=== PATIENT | male | born 1980 | race Caucasian/White ===

== ENCOUNTER 2021-05-05 12:06 | Emergency (ER) | payer MEDICAID, SELFPAY ==
[2021-05-05 12:08] VITALS: BP 124/73; PULSE 69; RESP 18; TEMP 36; O2SAT 97; BMI 26.4
--- NOTE | 2021-05-05 14:16 | EX.ED.GUMALE ---
HPI History of Present Illness Chief Complaint: Male Pain/Injury Informant: patient Pain Onset: Weeks Context: Gradual Onset Current Severity: Mild Maximum Severity: Moderate Narrative Narrative: Patient presents secondary to concern for right inguinal hernia. Patient notes pain in his right groin after being sick a few weeks ago and coughing a lot. When he stands he now notices the bulge. No difficulty with urination or bowel movements. No fever or chills. PFSH PFSH Medical History Smoker no medical history Home Medications NK 05/05/21 [History Last Taken Unknown] Allergy/AdvReac Type Severity Reaction Status Date / Time No Known Allergies Allergy Verified 05/05/21 12:07 Social History Smoking Status: Current every day smoker tobacco type: cigarettes ROS ROS ED Constitutional Constitutional ED: Denies chills or fever(s) Eyes Eyes: Denies change in vision ENT ENT ED: Denies sore throat Cardiovascular Cardiovascular: Denies chest pain Respiratory/Chest Respiratory/Chest: Denies cough or dyspnea Gastrointestinal Gastrointestinal: Reports abdominal pain; Denies diarrhea, nausea or vomiting Genitourinary Genitourinary ED: Denies dysuria Musculoskeletal Musculoskeletal: Denies back pain Integumentary Denies rash Neurologic Neurologic: Denies headache(s) or weakness Allergic/Immunologic Allergic/Immunologic ED: Denies urticaria EXAM Physical Exam Const Vital Signs: 05/05/21 12:08 Temperature 96.8 F L Temperature Source Temporal Pulse Rate 69 Respiratory Rate 18 Blood Pressure 124/73 H Blood Pressure Mean 90 Pulse Ox 97 Oxygen Delivery Method Room Air Positive well nourished and well developed General Appearance ED: well developed HEENT normocephalic and atraumatic Eyes PERRL and EOMs intact bilaterally Neck supple Resp normal respiratory effort and clear to auscultation bilaterally Cardio regular rate and regular rhythm GI GI Narrative: Reducible direct inguinal hernia noted on the right. Hypoactive bowel sounds noted. Palpation: soft Neuro oriented x3 Sensorium / Orientation: alert Psych mental status grossly normal Skin Rashes: no rashes [facility] Treatment and Re-Evaluation Comments:: Discussed with patient he does have a inguinal hernia that is reducible at this time. Instructions for what to do if it is allergy stuck. Referral to surgery for elective repair. Return instructions provided. Discharge Plan Triage Chief Complaint: Male Pain/Injury ED Provider: Radha Almodovar Dx/Rx/DC Orders Clinical Impression: Inguinal hernia Instructions: ED Hernia (Adult) Prescriptions: No Action NK RF: 0 Primary Care Provider: Care Physician,No Primary Referrals: Joy Sheppard MD [STAFF PHYSICIAN] - As soon as possible Care Physician,No Primary [Primary Care Provider] - Disposition Disposition: Home, Self Care
[2021-05-05 14:50] VITALS: BP 114/87; PULSE 85; RESP 16; O2SAT 98
== END 2021-05-05 14:51 | disposition home or self-care (01) ==
LOC: ED 14:28
PROVIDERS: Emergency Provider Emergency Medicine; Visit Provider Emergency Medicine
DX: K40.90 Unilateral inguinal hernia, without obstruction or gangrene, not specified as recurrent (principal); F17.210 Nicotine dependence, cigarettes, uncomplicated
CPT/HCPCS: 99282

== ENCOUNTER 2023-10-13 20:18 | Emergency (ER) | payer SELFPAY ==
[2023-10-13 20:19] VITALS: BP 126/111; PULSE 97; RESP 18; TEMP 36.6; O2SAT 97; BMI 25.0
--- NOTE | 2023-10-13 20:35 | RAD_ITS ---
EXAM: XR RIGHT KNEE COMPLETE, 4 OR MORE VIEWS CLINICAL INDICATION: knee pain TECHNIQUE: Four or more views of the right knee. COMPARISON: 05.19.23 FINDINGS: BONES/JOINTS: Unremarkable. No acute fracture. No subluxation. Normal alignment. Preservation of the joint space. No sclerotic or destructive changes observed. SOFT TISSUES: Unremarkable. No soft tissue swelling or gas. No radiopaque foreign body. RAD/Knee 4 or More Views IMPRESSION: Negative right knee x-rays. Electronically Signed: Brenton Edwards MD at 20:50 EDT ,
--- NOTE | 2023-10-13 20:46 | EDS_ITS ---
HPI <JOSESITO Palacios - Last Filed: 10/13/23 20:53> History of Present Illness Chief Complaint: Lower Extremity Injury Narrative Narrative: Patient is a 43-year-old male with no significant medical history, patient presents to the emergency department with pain to the right knee. Patient states around noon today, he was chasing his dog, he twisted wrong and heard a pop in his right knee. He states has been having difficulty walking, it is more swollen he is here for evaluation. Denies any other injury. Denies any past history of knee problems. PFSH <JOSESITO Palacios - Last Filed: 10/13/23 20:53> [facility] Medical History Smoker Home Medications ?Medication ?Instructions ?Recorded ?Last Taken ?Type NK 05/05/21 Unknown History Allergy/AdvReac Type Severity Reaction Status Date / Time No Known Allergies Allergy Verified 10/13/23 20:20 Social History Smoking Status: Current every day smoker tobacco type: cigarettes ROS <JOSESITO Palacios - Last Filed: 10/13/23 20:53> ROS ED ROS Narrative Constitutional: Negative for fever, chills, weight loss, weakness Eyes: Negative for vision loss, vision change, double vision ENT: Negative for any sore throat, ear pain, congestion Cardiovascular: Negative for any chest pain, tightness, palpitations Respiratory: Negative for any cough, sputum production, hemoptysis, dyspnea, dyspnea on exertion, orthopnea Gastrointestinal: Negative for any abdominal pain, nausea, vomiting, diarrhea, constipation, blood in stool, blood in vomit : Negative for any urinary frequency, dysuria, retention, blood in urine Muscle skeletal: Negative for any neck pain, back pain. Positive for right knee pain Neurological: Negative for any headache, syncope, dizziness Skin: Negative for any rashes, itching, abrasions, lacerations Psychiatric: Negative for any depression, anxiety, stress, suicidal ideation, homicidal ideation Hematologic: Negative for any excessive bruising, easy bleeding EXAM <JOSESITO Palacios - Last Filed: 10/13/23 20:53> Physical Exam Narrative Exam Narrative: Vital signs reviewed. HEET: Head normocephalic atraumatic, TMs clear bilaterally. Posterior pharynx is clear, moist mucous membranes. Nares clear bilaterally. Neck: Supple with no lymphadenopathy or tenderness. No signs of meningismus. Cardiac: Regular rate and rhythm no murmurs gallops or rubs, equal peripheral pulses bilaterally. Respiratory: Lungs clear to auscultation bilaterally. No chest tenderness. Abdomen: Soft, nontender, nondistended. No abdominal bruit or pulsatile masses. No hepatosplenomegaly Extremities: No peripheral edema, no signs of gross trauma or deformity. Active full range of motion of all extremities. Patient has intact extensor mechanism to the right leg. It was difficult to perform a thorough physical examination secondary to the patient having too much pain. However there was slight edema, there is no joint deformity. +2 pedal pulse. Neuro: Cranial nerves II through XII intact, no focal neurological deficits. Skin: Clean dry and intact with no rash, purpura, petechiae, vesicles or pustules. Backs/flank: No CVA tenderness, no midline spinal tenderness, no deformity. Psych: Normal mood and affect. No SI, HI or acute psychosis. Const Vital Signs: 10/13/23 20:19 Temperature 97.8 F Temperature Source Temporal Pulse Rate 97 Respiratory Rate 18 Blood Pressure 126/111 H Blood Pressure Mean 116 Pulse Ox 97 Oxygen Delivery Method Room Air <Dr. Kevin David MD - Last Filed: 10/13/23 20:55> Physical Exam Const Vital Signs: 10/13/23 20:19 Temperature 97.8 F Temperature Source Temporal Pulse Rate 97 Respiratory Rate 18 Blood Pressure 126/111 H Blood Pressure Mean 116 Pulse Ox 97 Oxygen Delivery Method Room Air [facility] <JOSESITO Palacios - Last Filed: 10/13/23 20:53> [facility] Radiography Diagnostic Testing: Clinical Impression(s) from Imaging Studies Knee X-Ray 10/13/23 20:35 IMPRESSION: Negative right knee x-rays. Electronically Signed: Brenton Edwards MD at 20:50 EDT , Treatment and Re-Evaluation :: Differential diagnosis includes however is not limited to: Knee sprain, knee joint effusion, internal derangement, patellar fracture, proximal tibial fracture Patient appears to be in no obvious distress, patient's vital signs are stable. Patient presents to the emerged part with right knee injury. Patient's physical examination yielded no red flag signs. Patient did receive 4 view x-ray of the right knee. This was interpreted by the ER physician. Patient was offered ibuprofen, Tylenol, he refused at this time. X-rays showed no acute process. Possible slight small effusion. Patient will be given a knee immobilizer, patient will also receive crutches. He will ice and elevate, he will follow-up with orthopedics. He will also be given a primary care physician. He is happy with the plan of care, was given return precautions. He is made aware that if it continues to hurt in the next 2 to 4 weeks, he might need an MRI. He will follow-up outpatient. All questions answered stable for discharge. <Dr. Kevin David MD - Last Filed: 10/13/23 20:55> [facility] Narrative Medical decision making narrative: I have personally performed a face to face assessment of the patient and have reviewed the OSWALD Note. I performed a substantive portion of the visit including all aspects of the following. My bajwa findings include: History is 43-year-old male was running and twisted and injured his right knee. No prior knee history or surgery. No other complaints. Exam is [well-appearing 43-year-old male. Vital signs stable afebrile. H EENT exam unremarkable. Lungs clear. Heart regular rhythm. Chest wall and ribs nontender. Abdomen soft nontender. Moving all 4 extremities. Right hip ankle and foot nontender. Normal DP pulse. Able to wiggle his toes. Normal touch sensation. Normal dorsi plantarflexion. He can flex and extend his right knee with some discomfort. ACL and PCL appear to be intact. As do the MCL and LCL. Quadriceps patellar tendon appears to be intact he can lift his leg off the bed. There is no significant swelling or effusion on exam. Hips nontender.] Medical Decision Making [right knee x-ray obtained for views interpreted by myself shows no acute abnormality. Also read by the radiologist agrees. I discussed with the patient this could just be a knee sprain if is not improving now he needs orthopedic follow-up for further evaluation and possible MRI. I explained to him that soft tissue injuries of the knee do not show up on the x- ray. Discharged home. Ice and elevate. Knee immobilizer. Crutches.] Other additions or changes: [None] Radiography Chest X-Ray - ED: Read by ED Physician and Read by Radiologist Diagnostic Testing: Clinical Impression(s) from Imaging Studies Knee X-Ray 10/13/23 20:35 IMPRESSION: Negative right knee x-rays. Electronically Signed: Brenton Edwards MD at 20:50 EDT Reading Location ID and State: [facility] / [place] , Service support , Knee x-ray, 4 views, interpreted both by myself and the radiologist shows no acute abnormality. No fracture. No dislocation. No significant effusion. Discharge Plan Triage Chief Complaint: Lower Extremity Injury ED Midlevel Provider: Sergei Mendez ED Provider: Kevin David Dx/Rx/DC Orders Clinical Impression: Knee sprain Instructions: ED Knee Sprain Prescriptions: No Action NK Primary Care Provider: Care Physician,No Primary Referrals: Leif Marshall, [Med Staff - Active Staff] - 1-2 Weeks Care Physician,No Primary [Primary Care Provider] - Activity Restrictions/Additional Instructions: Ice and elevate your leg to decrease pain and swelling for the next couple days. Crutches when you are up and walking. Knee immobilizer when you are up and walk ing. You can take it off to sleep if you are just sitting or bathing. This may just be a sprain knee that should get better with ice, rest and Motrin and Tylenol. If is not getting better in 1 to 2 weeks call the orthopedic physician on-call today that we referred you to Dr. Leif marshall he is with [facility] and you can follow-up with him in the office to have your knee reevaluated. The x-rays look good but that does not rule out a torn cartilage in your knee or other injuries. Those cannot be seen on x-ray. If the pain continues they may need to get an MRI of your knee. Print Language: Swedish Disposition Disposition: Home, Self Care
[2023-10-13 21:13] VITALS: BP 134/76; PULSE 88; RESP 16; TEMP 36.8; O2SAT 99
== END 2023-10-13 21:14 | disposition home or self-care (01) ==
PROVIDERS: Emergency Provider Emergency Medicine; Visit Provider Emergency Medicine
DX: S83.91XA Sprain of unspecified site of right knee, initial encounter (principal); F17.210 Nicotine dependence, cigarettes, uncomplicated; X58.XXXA Exposure to other specified factors, initial encounter
CPT/HCPCS: 73564; 99283